=== PATIENT | female | born 1950 | race Caucasian/White ===

== ENCOUNTER 2024-01-10 13:03 | Emergency (ER) | payer OTHER, SELFPAY ==
[2024-01-10 13:10] VITALS: BP 169/89
--- NOTE | 2024-01-10 16:33 | ED.GENMED ---
History of Present Illness
General
Chief Complaint: DVT/Possible Blood Clot
Time Seen by Provider: 01/10/24 15:59
Travel History
Have you had any contact with someone who has COVID-19?: No
Do you have any symptoms of coronavirus? Fever > 100 degrees, chills, cough, shortness of breath, sore throat, loss of taste or smell, muscle aches, or headache?: No
History of Present Illness
History of Present Illness:
73-year-old female presents the emergency department for evaluation of right thigh and calf cramping and swelling. She notes she has had discomfort in this leg for the past 2 weeks, traveled by plane from [place] to [place] to visit
family where she noticed acute worsening of symptoms. She is able to ambulate and denies any severe pain or numbness of the foot. Denies any chest pain or shortness of breath. No history of VTE
Past History
Past History
ED Past Medical History: Other (GERD, diabetes, hysterectomy)
Social History
Tobacco: Non-smoker
Alcohol: None
Family History
Family History: CAD
Review of Systems
Review of Systems
Allergies reviewed?: Yes
All Other Systems: ROS reviewed and negative except as documented in HPI and ROS
Phy Exam
Physical Exam
Physical Exam:
GEN: Well appearing, NAD, WDWN
HEENT: Oral mucosa moist, no scleral icterus
Cardiac: Regular rate
Lung: No respiratory distress, no tachypnea
MSK: No gross deformity or injuries. Mild edema of the right lower extremity, right dorsalis pedis pulses 2+, sensation intact, no cyanosis
Skin: Good color, no pallor or jaundice, no rashes
Neuro: AO x3, moves all extremities freely
Psych: Calm, cooperative
Course
Orders/Labs/Results
Orders:
Orders
01/10/24 13:16
Periph Venous Lwr Ext Rt US [US Periph Venous LOWER Ext RT] Urgent
Comment:
Reason For Exam: swelling and pain
01/10/24 16:32
Apixaban [Eliquis] 10 mg PO NOW STA
Vital Signs
Initial and Last Documented VS:
Initial Vital Signs
Temp Pulse Resp BP Pulse Ox
99.0 F 97 20 169/89 100
01/10/24 13:10 01/10/24 13:10 01/10/24 13:10 01/10/24 13:10 01/10/24 13:10
Last Documented Vital Signs
Temp Pulse Resp BP Pulse Ox
99.0 F 97 20 169/89 100
01/10/24 13:10 01/10/24 13:10 01/10/24 13:10 01/10/24 13:10 01/10/24 13:10
MDM/Problems Addressed
MDM/Problems Addressed:
Patient is identified to have an extensive DVT of the right lower extremity however no signs of phlegmasia at this time. She has started on Eliquis, counseled the patient on medication precautions and need for follow-up with primary care and
hematology upon return to [place]
*Critical Care Note
Total Time (30-74mins, 75-104mins- exclusive of procedures): Not Applicable
ED Attending Note
-
Portions of this chart may have been created with voice recognition software.� Occasional wrong word or��sound alike� substitutions may have occurred due to the inherent limitations of voice recognition software.
Discharge Plan
Departure
Patient Disposition: Home (Routine Discharge)
Date of Disposition: 01/10/24
Time of Disposition: 16:33
Patient with high blood pressure during this ER visit?: No
Discharge Problem:
Deep vein thrombosis (DVT) of femoral vein of right lower extremity
Instructions: Deep Vein Thrombosis (Blood Clots in the Legs) (DC), Taking oral medicines for blood clots
Prescriptions:
New
Eliquis 5 mg tablet
5 mg PO BID Qty: 74 0RF
No Action
acetaminophen 325 MG tablet
650 mg PO Q4HPRN PRN (Reason: pain)
atorvastatin 10 MG tablet
10 mg PO .DAILY AT 12 NOON
famotidine 20 MG tablet
20 mg PO DAILYPRN PRN (Reason: GERD)
esomeprazole magnesium [Nexium] 40 MG capsule,delayed release(DR/EC)
40 mg PO .DAILY ON AWAKENING
lisinopril 5 MG tablet
5 mg PO .DAILY W/ BREAKFAST
Referrals:
PRIVATE,PHYSICIAN [Family Provider] -
Activity Restrictions/Additional Instructions:
You have an extensive DVT from the thigh down to the calf
At this time there is no sign of lack of blood flow to the leg, however if you develop severe leg pain or pale skin to the leg, do not hesitate to seek immediately medical attention
Interventions
Interventions:
*Risk Screen - Suicide Last Done: 01/10/24 16:50
*General Assessment Last Done: 01/10/24 16:50
*Neglect/Abuse Screening Last Done: 01/10/24 16:50
ED- Fall Risk Assessment Last Done: 01/10/24 16:52
*ED COVID-19 Vaccine History Last Done: 01/10/24 13:16
*Nursing Disposition Last Done: 01/10/24 16:52
ED- Cardiac Assessment Last Done: 01/10/24 16:50
ED- Pulmonary Assessment Last Done: 01/10/24 16:50
ED-Peripheral Vascular Assessment Last Done: 01/10/24 16:50
ED-Skin Assessment Last Done: 01/10/24 16:50
Discharge Date and Time
Discharge Date/Time: 01/10/24 17:02
Print Language: AZERI
[2024-01-10] MEDS: ELIQUIS 10 MG PO (16:41)
== END 2024-01-10 17:02 | disposition home or self-care (01) ==
LOC: EMR 13:03
PROVIDERS: EMERGENCY PHYSICIAN Emergency Medicine
DX: I82.411 Acute embolism and thrombosis of right femoral vein (principal)
CPT/HCPCS: 99284; 93971